=== PATIENT | male | born 1980 | race Caucasian/White ===

== ENCOUNTER 2016-11-14 02:59 | Emergency (ER) | payer BC ==
[~2016-11-14 02:59] MED LIST: ALLEGRA-D 24 H1 EACH PO; FLEXERIL10 MG PO; IBUPROFEN800 MG PO; NORCO 5/325 TAB1 TAB PO; NORCO 7.5-3251 EACH PO; ZOFRAN4 M2 PO
[2016-11-14] MEDS ORDERED: NO MEDS (03:05)
[2016-11-14] MEDS ORDERED: NORCO 5/3251 TAB PO (04:08)
== END 2016-11-14 04:32 ==
LOC: EDMED 02:59
DX: M72.2 Plantar fascial fibromatosis (principal); Z87.442 Personal history of urinary calculi; F17.210 Nicotine dependence, cigarettes, uncomplicated